=== PATIENT | female | born 1940 | race Caucasian/White ===

== ENCOUNTER 2021-03-21 07:08 | Inpatient (IN) | payer MEDICARE, BC ==
[~2021-03-21] VITALS: Ht 167.6 cm; Wt 82.0 kg
--- NOTE | 2021-03-21 07:29 | PHYS DOC ---
General Adult EDM: Chief Complaint: NAUSEA/VOMITING/DIARRHEA HPI: HPI: Patient is a 72 year old female who presents with 1 week of nausea, vomiting, and diarrhea. She is also began having some lightheadedness and generalized weakness. She did have left ear pain, and was diagnosed with a left ear infectio n on 03/19. Was started on Bactrim by her PCP. The ear pain has subsided. She did have some subjective fever earlier in the week, but this is also subsided. She is having trouble keeping hydrated. She is vaccinated with both Covid shots. Denies any Covid contacts. Denies any abdominal pain, chest pain, shortness of breath. Review of Systems: Review of Systems: Constitutional: + generalized weakness. Denies fever or chills Eyes: Denies change in visual acuity HENT: Denies nasal congestion or sore throat Respiratory: Denies cough or shortness of breath Cardiovascular: Denies chest pain or edema GI: + nausea, vomiting, diarrhea. Denies abdominal pain. : Denies dysuria Musculoskeletal: Denies back pain or joint pain Integument: Denies rash Neurologic: Denies headache, focal weakness or sensory changes Endocrine: Denies polyuria or polydipsia Lymphatic: Denies swollen glands Psychiatric: Denies depression or anxiety Family History: Family History: No pertinent family hx Current Medications: Current Meds: Current Medications Medications (Trade) Dose Ordered Sig/Amrik Start Time Stop Time Status Last Admin Dose Admin Ondansetron HCl (Zofran) 4 mg 1X ONCE 03/21/21 07:30 03/21/21 07:31 UNV Sodium Chloride 1,000 ml @ 1,000 mls/hr 1X ONCE 03/21/21 07:30 03/21/21 08:29 UNV Allergies: Allergies: Allergies Coded Allergies Type Severity Reaction Last Updated Verified Penicillins Allergy Unknown 03/21/21 Yes codeine Allergy Unknown 03/21/21 Yes Physical Exam: PE: Constitutional: Well developed, well nourished, no acute distress, non-toxic appearance. [] HENT: Left TM with minimal redness but not bulging, Right TM is normal., oropharynx moist, no oral exudates, nose normal. [] Eyes: PERRLA, EOMI, conjunctiva normal, no discharge. [] Neck: Normal range of motion, no tenderness, supple, no stridor. [] Cardiovascular:Heart rate regular rhythm, no murmur [] Lungs & Thorax: Bilateral breath sounds clear to auscultation [] Abdomen: Bowel sounds normal, soft, no tenderness, no masses, no pulsatile masses. [] Skin: Warm, dry, no erythema, no rash. [] Back: No tenderness, no CVA tenderness. [] Extremities: No tenderness, no cyanosis, no clubbing, ROM intact, no edema. [] Neurologic: Alert and oriented X 3, normal motor function, normal sensory function, no focal deficits noted. [] Psychologic: Affect normal, judgement normal, mood normal. [] EKG: EKG: [] Radiology/Procedures: Radiology/Procedures: [] Impressions: [place] [address] IMAGING REPORT Signed PATIENT: YONI ARTEAGA ACCOUNT: [id number] : 1940 LOCATION: ER AGE: 80 SEX: F EXAM STATUS: REG ER ORD. PHYSICIAN: DILIP JOSHUA MD REASON: cough PROCEDURE: CHEST AP ONLY AP chest. HISTORY: Cough AP view was taken of the chest. Heart is normal in size. There is no effusion. There is minimal linear scarring or atelectasis at the left costophrenic angle without other infiltrates. The aorta is mildly tortuous similar to the old study. IMPRESSION: 1. Left base linear scarring or atelectasis without other infiltrates. Electronically signed by: Jona Lopez MD (03/21/2021 8:46 AM) [id number] DICTATED AND SIGNED BY: JONA LOPEZ MD DATE: 03/21/21 0845 CC: DILIP JOSHUA MD; LIVIER HERNANDEZ MD ~MTH0 0 Heart Score: C/O Chest Pain: No Risk Factors: Risk Factors: DM, Current or recent (<one month) smoker, HTN, HLP, family history of CAD, obesity. Risk Scores: Score 0 - 3: 2.5% MACE over next 6 weeks - Discharge Home Score 4 - 6: 20.3% MACE over next 6 weeks - Admit for Clinical Observation Score 7 - 10: 72.7% MACE over next 6 weeks - Early Invasive Strategies Course & Med Decision Making: Course & Med Decision Making Pertinent Labs and Imaging studies reviewed. (See chart for details) Patient is a 80-year-old female who presents with 1 week of nausea, vomiting, and diarrhea. Has been treated for a left ear infection by her PCP started on 03/19, with improvement in her ear pain. She is vaccinated for Covid. On arrival is afebrile and hemodynamically stable. She appears fatigued, but not toxic in appearance. Abdomen is benign. Do not feel that she requires any abdominal imaging. Normal oxygenation and auscultatory exam do not feel that she requires a chest x-ray to evaluate for pneumonia. Will check electrolytes and cell counts. We will check a UA for signs of infection. Will check a Covid test. Will provide with IV fluids and antiemetics and reassess. 0729 Sodium 119. K 3.1. IV repletion ordered. Do not think she would tolerate PO repletion at this time. Urine osms added. Awaiting UA. She cannot provide a sample yet. With hyponatremia feel she will need to be admitted for further management. [id number] Evelin Disclaimer: Evelin Disclaimer: This electronic medical record was generated, in whole or in part, using a voice recognition dictation system. Departure Departure: Impression: Primary Impression: Hyponatremia Additional Impressions: Gastroenteritis Cough Disposition: ADMITTED INPATIENT Admitting Physician: Rene Louise Condition: STABLE Referrals: LIVIER HERNANDEZ MD (PCP) DILIP JOSHUA MD Mar 21, 2021 07:29
[2021-03-21] MEDS ORDERED: ONDANSETRON PF 4 MG/2 ML VIAL. IVP ONE (07:30)
[2021-03-21] MEDS ORDERED: IV NORMAL SALINE 1,000ML 1,000 ML IV ONE (07:30)
[2021-03-21 08:05] LABS: BASO % 0 % (0-3); EOS # 0.1 x10^3/uL (0.0-0.7); EOS % 1 % (0-3); HEMATOCRIT 33.9 % (36.0-47.0); HEMOGLOBIN 12.1 g/dL (12.0-15.5); LYMPH # 1.7 x10^3/uL (1.0-4.8); LYMPH % 19 % (24-48); MEAN CORPUSCULAR HEMOGLOBIN 32 pg (25-35); MEAN CORPUSCULAR HGB CONC 36 g/dL (31-37); MEAN CORPUSCULAR VOLUME 90 fL (79-100); MONO # 0.8 x10^3/uL (0.0-1.1); MONO % 9 % (0-9); NEUT # 6.5 x10^3uL (1.8-7.7); NEUT % 72 % (31-73); PLATELET COUNT 225 x10^3/uL (140-400); RED BLOOD COUNT 3.76 x10^6/uL (3.50-5.40); RED CELL DISTRIBUTION WIDTH 13.3 % (11.5-14.5); WHITE BLOOD COUNT 9.1 x10^3/uL (4.0-11.0)
[2021-03-21 08:15] LABS: ALBUMIN 3.4 g/dL (3.4-5.0); ALBUMIN/GLOBULIN RATIO 1.2 (1.0-1.7); CALCIUM 7.9 mg/dL (8.5-10.1); CREATININE 1.2 mg/dL (0.6-1.0); GFR 43.4; POTASSIUM 3.1 mmol/L (3.5-5.1); TOTAL BILIRUBIN 0.8 mg/dL (0.2-1.0); TOTAL PROTEIN 6.3 g/dL (6.4-8.2)
[2021-03-21] MEDS ORDERED: POTASSIUM CHLORIDE 20MEQ 100 ML IV ONE (08:45)
--- NOTE | 2021-03-21 08:48 | RAD ---
AP chest. HISTORY: Cough AP view was taken of the chest. Heart is normal in size. There is no effusion. There is minimal linea r scarring or atelectasis at the left costophrenic angle without other infiltrates. The aorta is mild ly tortuous similar to the old study. IMPRESSION: 1. Left base linear scarring or atelectasis without other infiltrates. Electronically signed by: Jona Lopez MD (03/21/2021 8:46 AM) [id number]
[2021-03-21 09:48] VITALS: BP 156/75
[2021-03-21] MEDS ORDERED: MAGNESIUM SULFATE 1GM 100 ML IV ONE (10:00)
--- NOTE | 2021-03-21 10:24 | HP ---
ATTENDING PHYSICIAN: Dr. Louise. CHIEF COMPLAINT: Weakness, nausea and diarrhea. HISTORY OF PRESENT ILLNESS: The patient is a 80-year-old female with a 5-day history of nausea, vomiting, diarrhea. She was very weak and dehydrated. She was diagnosed with ear infection on 03/19. She was prescribed Bactrim. Ear pain has subsided. In the ED, she had extensive workup. She has had her COVID shots, both vaccinations. She had a serum sodium 119 mEq/L. Potassium was also diminished at 3.1 mEq. She was admitted then with gastroenteritis, dehydration and hyponatremia. PAST MEDICAL HISTORY: Significant for essential hypertension. MEDICATIONS: I am not aware of her current medicines at this time. We are in the process of figuring out her active medication list. SOCIAL HISTORY: She is a nonsmoker, nondrinker. FAMILY HISTORY: Noncontributory. CURRENT ALLERGIES: INCLUDE PENICILLIN, CODEINE, REACTIONS UNCLEAR. REVIEW OF SYSTEMS: Significant for the GI symptoms. She is unable to keep much liquids down. She is admitted then for generalized weakness. She does live alone. All other systems reviewed and turned to be negative. There is no blood in the stool. PHYSICAL EXAMINATION: GENERAL: When I saw her, this is a pleasant elderly female. VITAL SIGNS: Initial vital signs showed a blood pressure 147/67, pulse 88 and regular. She is afebrile, oxygen saturation 98% on room air. HEENT: Head is without trauma. Pupils are reactive. Sclerae nonicteric. Oropharynx is clear. NECK: Supple. Mucous membranes dry. LUNGS: Otherwise, clear to auscultation. CARDIOVASCULAR: Regular heart tones. No gallop. ABDOMEN: Soft, scaphoid, nontender, no organomegaly. EXTREMITIES: Without edema. NEUROLOGIC: Focally intact. SKIN: Warm and dry. PERTINENT LABORATORY STUDIES: Hemoglobin is 12.1 g/dL, white count 9100. Serum sodium 119 mEq/L, chloride was concomitantly low at 84, potassium 3.1 mEq/L, creatinine 1.2 mg%. Nonfasting blood sugar 128. Chest x-ray shows some linear scarring in the left base. No acute infiltrates identified. ASSESSMENT: 1. A 80-year-old female with probable self-limiting gastroenteritis. 2. Dehydration. 3. Symptomatic hyponatremia. 4. Essential hypertension. PLAN: 1. Admit to the inpatient unit. 2. IV hydration with saline. 3. Potassium and magnesium replacement. 4. Serial chemistries. 5. Our goal is to raise her serum sodium level by 6-8 mEq in a 24-hour period to avoid osmotic demyelinating syndrome. Diet as tolerated. I shall review her home meds. She DNR per advanced directive, we will respect her wishes. CONRADO DR: Darlene TID: [id number] CC: Rony Tran M.D.
[2021-03-21 10:30] LABS: BACTERIA,URINE FEW /HPF (0-FEW); BILIRUBIN,URINE NEG (NEG); CLARITY,URINE HAZY; COLOR,URINE YELLOW; GLUCOSE,URINE NEG (NEG); NITRITE,URINE NEG (NEG); RBC,URINE OCC /HPF (0-2); SQUAMOUS EPITHELIAL CELL,UR MOD /LPF; UROBILINOGEN,URINE 0.2 mg/dL (0.2 mg/dL); YEAST,URINE PRESENT /HPF
[2021-03-21] MEDS: POTASSIUM CL 40MEQ IN 0.9%NACL 1,000 ML IV SCH ×2 (10:33→20:26)
[2021-03-21] MEDS ORDERED: LEVO25TA4 PO (10:53)
[2021-03-21] MEDS ORDERED: METF500T16 PO (10:53)
[2021-03-21] MEDS ORDERED: LOSA100T14 PO (10:53)
[2021-03-21] MEDS ORDERED: ASPI-630 PO (10:53)
[2021-03-21] MEDS ORDERED: ATOR40TA59 PO (10:53)
[2021-03-21] MEDS ORDERED: CHLO25TA9 PO (10:53)
--- NOTE | 2021-03-21 11:16 | NUR ---
Nursing Note Admission Pt arrived via gurney with EMS. Pt settled into bed and feels weak. Pt started on IV potassium and magnesium. Pt a&o x 4. Pt calm and cooperative.
--- NOTE | 2021-03-21 11:44 | EKG ---
[address] [address] Test Date: 2021-03-21 Test Time: 08:51:21 Pat Name: YONI ARTEAGA Department: Room: Gender: F Hand Turner: YASIR : 1940 Requested By: DILIP JOSHUA Order Number: [id number] Reading MD: Measurements Intervals [place] Rate: 78 P: 27 OH: 162 QRS: -8 QRSD: 114 T: 58 QT: 398 QTc: 457 Interpretive Statements SINUS RHYTHM LEFTWARD AXIS T ABNORMALITY IN ANTEROLATERAL LEADS ABNORMAL ECG RI6.02 No previous ECG available for comparison
[2021-03-21] MEDS: POTASSIUM CHLORIDE 20 MEQ TABLET.ER. PO SCH ×2 (12:16→20:27)
--- NOTE | 2021-03-21 12:59 | NUR ---
Nursing Note Pt complained that her throat was swollen. Dr. Louise notified at 1255. Order for Cepacol throat lozenges.
[2021-03-21] MEDS ORDERED: BENZOCAINE/MENTHOL LOZNGE 18'S BOX. PO PRN (13:00)
[2021-03-21 15:06] VITALS: BP 149/76
[2021-03-21] MEDS: metFORMIN 500 MG TABLET PO SCH (17:15)
--- NOTE | 2021-03-21 18:21 | NUR ---
Nursing Note Pt's COVID test came back negative, so pt no longer on precautions. Pt did not complain of vomiting or diarrhea all day, along with no nausea. Pt kept all of her fluids and food down. Pt still complains of throat bothering her. Pt told this nurse her throat has felt swollen/has had trouble swallowing food since her N&V started about 6 [address] Pt states Dr. Tran is aware. Pt's throat was checked and Dr. Louise was notified. Pt refused the cough drops that were ordered for her PRN. Pt told another staff member this had been going on for about a week before she was sick. Another staff member also checked her throat. Pt told this nurse she was having trouble swallowing pills, but took her pills fine for this nurse. Pt received some electrolyte replacement today and still has potassium running through her IV. Pt on a diabetic diet. Other staff had stated pt was hard of hearing, this nurse did not have any issues communicating with pt.
[2021-03-21 19:23] VITALS: BP 150/70
[2021-03-21] MEDS ORDERED: ATORVASTATIN CALCIUM 20 MG TABLET PO SCH (21:00)
[2021-03-21] MEDS ORDERED: POTASSIUM CHLORIDE 20 MEQ TABLET.ER. PO SCH (21:00)
[2021-03-21 23:00] VITALS: BP 135/71
--- NOTE | 2021-03-22 03:11 | NUR ---
Nursing note: Pt c/o difficulty swallowing; pt able to take pills with difficulty. Pt stated she was unable to swallow hamburger at dinner. Pt able to swallow liquids, ice cream. Pt placed on GI soft diet as pt said she was more able to swallow soft foods. Speech consult ordered. Pt rested comfortably in bed throughout shift, no n/v/d.
[2021-03-22] MEDS: POTASSIUM CL 40MEQ IN 0.9%NACL 1,000 ML IV SCH (05:34)
[2021-03-22 06:00] VITALS: BP 136/72
[2021-03-22] MEDS ORDERED: LEVOTHYROXINE 25 MCG TABLET. PO SCH (06:00)
[2021-03-22 07:14] LABS: CALCIUM 8.3 mg/dL (8.5-10.1); CREATININE 0.9 mg/dL (0.6-1.0); GFR 60.6; POTASSIUM 4.9 mmol/L (3.5-5.1)
[2021-03-22] MEDS: metFORMIN 500 MG TABLET PO SCH (08:00)
[2021-03-22] MEDS: POTASSIUM CHLORIDE 20 MEQ TABLET.ER. PO SCH (08:43)
[2021-03-22 08:44] VITALS: BP 136/72
[2021-03-22] MEDS ORDERED: LOSARTAN 50 MG TABLET. PO SCH (09:00)
[2021-03-22] MEDS ORDERED: ASPIRIN CHEWABLE 81 MG TABLET. PO SCH (09:00)
--- NOTE | 2021-03-22 09:15 | NUR ---
pt spoke with Dr. Louise, and discharge was discussed with patient at bedside. Pt's IV was removed and dressing in place. Pt signed discharge paperwork and was walked out into the waiting room.
--- NOTE | 2021-03-22 12:28 | DS ---
DATE OF DISCHARGE: 03/22/2021 ATTENDING PHYSICIAN: Dr. Louise. FINAL DISCHARGE DIAGNOSES: 1. Hyponatremia, corrected. 2. Dehydration, rehydrated. 3. Self-limiting gastroenteritis, resolved. 4. Recent ear infection cleared. 5. Essential hypertension. 6. Type 2 diabetes. HISTORY AND PHYSICAL: The patient a 80-year-old female, fairly independent. She has had a 3 to 4-day history of gastroenteritis, nausea, vomiting, diarrhea. She was very weak. She presented to the ED. Clinically, she was dehydrated. She also had a serum sodium level of 119 mEq per liter. She had no seizures or EKG abnormalities. She was admitted then with hyponatremia and dehydration. PHYSICAL EXAMINATION: Please see my dictated note. PERTINENT LABORATORY AND X-RAY STUDIES: Hemoglobin on admission was 12.1 g/dL with a white count of 9100. Admission sodium was 119 mEq per liter, potassium 3.1 mEq, creatinine 1.2 mg %. Nonfasting blood sugar 107. By the next day with gentle hydration, potassium and magnesium replacement, sodium came up to 131 mEq per liter with just normal saline. Her potassium was replaced up to 4.9 mEq. She did receive magnesium and the potassium oral supplementation. Her creatinine improved to 0.9 mg/dL. Symptomatically, she was much improved. COURSE IN THE HOSPITAL: The patient was admitted. She was started on normal saline. Serial chemistry, she did remarkably well. By the second hospital day, her sodium was close to normal at 131 mEq, potassium 4.9 mEq per liter, creatinine 0.9 mg %. Nonfasting blood sugar was 107. She felt well. Her lungs were clear. Blood pressure was 136/72. She was afebrile and her COVID coronavirus swab was negative. At this time, it is reasonable for her to go home. I suggest a bland diet for a few days and I suggested a followup visit with Dr. Tran in 2 weeks to recheck her electrolytes. For now, I will have her continue her metformin, losartan, Synthroid, Lipitor and aspirin doses unchanged. I have asked her to stop the chlorthalidone. In addition, she does not need to continue the Bactrim antibiotic. The patient was then discharged from our hospital in stable condition with explicit written and followup care. LING DR: Darlene TID: [id number] CC: Rony Tran
== END 2021-03-22 09:15 | disposition home or self-care (01) | DRG 641 ==
LOC: ER 07:08 → 1 SOUTH 08:51
PROVIDERS: ADMIT Hospitalist; ATTEND Hospitalist
DX: E86.0 Dehydration (principal); A08.4 Viral intestinal infection, unspecified; E87.1 Hypo-osmolality and hyponatremia; E11.9 Type 2 diabetes mellitus without complications; I10 Essential (primary) hypertension; Z20.822 Contact with and (suspected) exposure to COVID-19; Z88.5 Allergy status to narcotic agent; Z88.0 Allergy status to penicillin
CPT/HCPCS: 36415; 71045; 80048; 80053; 81001; 83735; 83935; 85025; 93005; 96361; 96374; J2405; J3475; J3480; U0003; 99285-25; J7030